=== PATIENT | female | born 1935 | race Two or more races ===

== ENCOUNTER 2020-04-29 10:06 | Emergency (ER) | payer OTHER ==
[~2020-04-29] VITALS: Ht 157.5 cm; Wt 59.0 kg
[2020-04-29] MEDS ORDERED: ASPIR 8181 MG (10:11)
[2020-04-29] MEDS ORDERED: NEURONTIN300 MG (10:11)
[2020-04-29] MEDS ORDERED: OMEPRAZOLE MAGN20 MG (10:11)
[2020-04-29] MEDS ORDERED: LASIX20 MG (10:12)
[2020-04-29] MEDS ORDERED: CARVEDILOL ER40 MG (10:12)
== END 2020-04-29 17:02 | disposition home or self-care (01) ==
LOC: ER 10:06
DX: K29.70 Gastritis, unspecified, without bleeding (principal); I10 Essential (primary) hypertension

== ENCOUNTER 2020-09-19 11:46 | Inpatient (IN) | payer OTHER ==
[~2020-09-19] VITALS: Ht 165.1 cm; Wt 81.6 kg
[~2020-09-19 11:46] MED LIST: ASPIR 8181 MG; CARVEDILOL ER40 MG; LASIX20 MG; NEURONTIN300 MG; OMEPRAZOLE MAGN20 MG
== END 2020-10-06 22:59 | disposition other institution (70) | DRG 388 ==
LOC: ER 11:46 → SURH 19:55
PROVIDERS: ADMIT Internal Medicine; ATTEND Internal Medicine
PROC: 02HV33Z Insertion of Infusion Device into Superior Vena Cava, Percutaneous Approach (ICD-10-PCS; principal; 2020-09-19)
PROC: 3E0336Z Introduction of Nutritional Substance into Peripheral Vein, Percutaneous Approach (ICD-10-PCS; 2020-09-19)
PROC: BW21ZZZ Computerized Tomography (CT Scan) of Abdomen and Pelvis (ICD-10-PCS; 2020-09-19)
PROC: BW21YZZ Computerized Tomography (CT Scan) of Abdomen and Pelvis using Other Contrast (ICD-10-PCS; 2020-09-19)
PROC: B24BZZZ Ultrasonography of Heart with Aorta (ICD-10-PCS; 2020-09-24)
PROC: CB2YYZZ Tomographic (Tomo) Nuclear Medicine Imaging of Respiratory System using Other Radionuclide (ICD-10-PCS; 2020-09-24)
PROC: 4A12X4Z Monitoring of Cardiac Electrical Activity, External Approach (ICD-10-PCS; 2020-09-27)
PROC: 3E0F7SF Introduction of Other Gas into Respiratory Tract, Via Natural or Artificial Opening (ICD-10-PCS; 2020-09-27)
PROC: 0DJD8ZZ Inspection of Lower Intestinal Tract, Via Natural or Artificial Opening Endoscopic (ICD-10-PCS; 2020-09-28)
PROC: 0W9B3ZX Drainage of Left Pleural Cavity, Percutaneous Approach, Diagnostic (ICD-10-PCS; 2020-10-01)
DX: K56.600 Partial intestinal obstruction, unspecified as to cause (principal); I50.31 Acute diastolic (congestive) heart failure; J98.11 Atelectasis; B37.49 Other urogenital candidiasis; J90 Pleural effusion, not elsewhere classified; E87.1 Hypo-osmolality and hyponatremia; Z20.822 Contact with and (suspected) exposure to COVID-19; Z74.01 Bed confinement status; E87.6 Hypokalemia; I48.91 Unspecified atrial fibrillation; F03.90 Unspecified dementia, unspecified severity, without behavioral disturbance, psychotic disturbance, mood disturbance, and anxiety; R73.9 Hyperglycemia, unspecified; I11.0 Hypertensive heart disease with heart failure